=== PATIENT | female | born 1990 | race African-American/Black ===

== ENCOUNTER 2018-03-23 20:26 | Emergency (ER) | payer MEDICAID ==
[~2018-03-23] VITALS: Ht 165.1 cm; Wt 82.0 kg
[2018-03-23 23:56] VITALS: BP 114/67
== END 2018-03-23 23:59 | disposition home or self-care (01) ==
LOC: ER 20:26
DX: H66.91 Otitis media, unspecified, right ear (principal); F17.200 Nicotine dependence, unspecified, uncomplicated
CPT/HCPCS: 99283; Z7610